=== PATIENT | male | born 1985 | race Caucasian/White ===

== ENCOUNTER 2024-12-27 08:33 | Inpatient (IN) | payer BC, MEDICAID ==
[~2024-12-27] VITALS: Ht 170.2 cm; Wt 72.1 kg
[2024-12-27 08:36] VITALS: O2SAT 99
[2024-12-27] MEDS: MORPHINE SULFATE 4 MG/ML INJ (FOR IV/IM USE) IM ONE (09:28)
[2024-12-27] MEDS ORDERED: THROMBIN (BOVINE) 5000 UNITS/VIAL TOP ONE (14:46)
[2024-12-27] MEDS ORDERED: GENTAMICIN SULF 40MG/ML 2ML VIAL ONE (14:47)
[2024-12-27] MEDS ORDERED: LIDOCAINE HCL/EPINEPHRINE 1%-EPI 1:100,000 20ML VIAL ONE (14:47)
[2024-12-27] MEDS: DEXAMETHASONE 10 MG/ML VIAL IV ONE (15:00)
[2024-12-27] MEDS: MORPHINE SULFATE 10 MG/ML INJ (NOT FOR IM USE) IV ONE (15:00)
[2024-12-27 15:18] LABS: BASOPHILS % 0.5 % (0.0-2.0); EOSINOPHILS % 0.5 % (0.0-5.0); HEMATOCRIT. 41.2 % (42.0-52.0); HEMOGLOBIN. 14.2 g/dL (14.0-18.0); LYMPHOCYTES % 13.2 % (20.0-50.0); MEAN PLATELET VOLUME 7.4 fl (7.4-10.4); MONOCYTES % 12.3 % (2.0-8.0); NEUTROPHILS % 73.5 % (40.0-76.0); PLATELET 323 x1000/uL (130-400); RED BLOOD CELL COUNT 4.73 mill/uL (4.7-6.1); RED CELL DISTRIBUTION WIDTH 13.1 % (11.6-14.6)
[2024-12-27 15:27] LABS: CREATININE 0.9 mg/dL (0.6-1.3)
[2024-12-27] MEDS ORDERED: ROCURONIUM BROMIDE 10MG/ML VIAL 5ML IV ONE (15:27)
[2024-12-27] MEDS ORDERED: FAMOTIDINE 20MG/2ML VIAL IV ONE (15:27)
[2024-12-27] MEDS ORDERED: ACETAMINOPHEN 1000MG/100ML 100 ML IV ONE (15:27)
[2024-12-27 15:28] LABS: UREA NITROGEN BLOOD 12 mg/dL (9-23)
[2024-12-27] MEDS ORDERED: LIDOCAINE HCL 1% 10 MG/ML 10ML VIAL ONE (15:30)
[2024-12-27] MEDS ORDERED: FENTANYL CITRATE/PF 50MCG/ML 2ML VIAL ONE (15:31)
[2024-12-27] MEDS ORDERED: PROPOFOL 200MG/20ML VIAL IV ONE ×2 (15:31→16:06)
[2024-12-27] MEDS ORDERED: MIDAZOLAM HCL 2 MG/2 ML VIAL ONE (15:31)
[2024-12-27 15:40] LABS: INR 0.9
[2024-12-27] MEDS ORDERED: HYDRALAZINE 20MG/ML VIAL IV PRN ×3 (15:45→16:30)
[2024-12-27] MEDS ORDERED: DEXTROSE 50% WATER 50ML SYRINGE IV PRN (16:00)
[2024-12-27] MEDS ORDERED: CLONIDINE 0.1MG TABLET PO PRN (16:00)
[2024-12-27] MEDS ORDERED: ACETAMINOPHEN 325MG TABLET PO PRN (16:00)
[2024-12-27] MEDS ORDERED: IPRATROPIUM/ALBUTEROL 0.5-3(2.5)MG/3ML NEB HHN PRN (16:00)
[2024-12-27] MEDS ORDERED: ONDANSETRON HCL 4MG/2ML INJ IV PRN ×2 (16:00→16:30)
[2024-12-27] MEDS ORDERED: HYDROMORPHONE HCL/PF 2MG/ML INJ ONE (16:01)
[2024-12-27] MEDS ORDERED: NALOXONE HCL 0.4MG/ML VIAL IV PRN (16:15)
[2024-12-27] MEDS ORDERED: DEXAMETHASONE 4MG/ML 1ML VIAL ONE (16:17)
[2024-12-27] MEDS ORDERED: SUCCINYLCHOLINE CHLORIDE 200MG/10ML IV ONE (16:17)
[2024-12-27] MEDS ORDERED: LABETALOL 5MG/ML 4ML INJ IV PRN (16:30)
[2024-12-27] MEDS: BLOOD SUGAR DIAGNOSTIC STRIP TEST SCH (17:00)
[2024-12-27] MEDS ORDERED: ONDANSETRON HCL 4MG/2ML INJ ONE (17:06)
[2024-12-27] MEDS ORDERED: GLYCOPYRROLATE 0.2 MG/ML 2ML VIAL ONE (17:31)
[2024-12-27] MEDS: DEXT 5%/LACTATED RINGERS 1,000 ML IV SCH (18:16)
[2024-12-27] MEDS: HYDROMORPHONE HCL/PF 1MG/ML INJ IV PRN (18:32)
[2024-12-27 19:10] VITALS: BP 113/82; PULSE 76; RESP 18; TEMP 36.3068
[2024-12-27] MEDS: DEXAMETHASONE 4MG/ML 1ML VIAL IV SCH (22:41)
[2024-12-27] MEDS: CEFAZOLIN 1000MG PREMIX 50 ML IV SCH (22:41)
[2024-12-27] MEDS: HYDROCODONE/ACETAMINOPHEN 7.5/325MG TABLET PO PRN (22:48)
[2024-12-28] MEDS: HYDROMORPHONE HCL/PF 2MG/ML INJ IV PRN (00:34)
[2024-12-28] MEDS: ACETAMINOPHEN 325MG TABLET PO PRN (02:54)
[2024-12-28 07:50] LABS: T4 FREE 2.47 ng/dL (0.89-1.76)
[2024-12-28 07:53] LABS: CREATININE 0.9 mg/dL (0.6-1.3)
[2024-12-28 07:54] LABS: LDL CHOLESTEROL 221 mg/dL (5-100); TRIGLYCERIDE 143 mg/dL (0-150); UREA NITROGEN BLOOD 8 mg/dL (9-23)
[2024-12-28 08:00] VITALS: BP 100/54; PULSE 103; RESP 17; TEMP 36.4; O2SAT 99
[2024-12-28 08:16] LABS: HEMATOCRIT. 39.3 % (42.0-52.0); HEMOGLOBIN. 13.7 g/dL (14.0-18.0); MEAN PLATELET VOLUME 8.2 fl (7.4-10.4); PLATELET 316 x1000/uL (130-400); RED BLOOD CELL COUNT 4.43 mill/uL (4.7-6.1); RED CELL DISTRIBUTION WIDTH 13.4 % (11.6-14.6)
[2024-12-28] MEDS: AMLODIPINE 10MG TABLET PO SCH (08:24)
[2024-12-28 10:27] VITALS: BP 112/77; TEMP 36.2
[2024-12-28 12:00] VITALS: BP 106/72; PULSE 70; RESP 18; TEMP 36.4; O2SAT 98
[2024-12-28] MEDS: HYDROCODONE/ACETAMINOPHEN 10/325MG TABLET PO PRN (13:47)
[2024-12-28] MEDS: CEFAZOLIN 1000MG PREMIX 50 ML IV SCH (15:46)
[2024-12-28 16:00] VITALS: BP 113/80; PULSE 68; RESP 19; TEMP 36.4; O2SAT 97
[2024-12-28] MEDS ORDERED: HYDROCODONE/ACETAMINOPHEN 10/325MG TABLET PO PRN (16:45)
[2024-12-28 18:12] LABS: LYMPHOCYTES % MANUAL 2.0 % (20.0-50.0); MONOCYTES % MANUAL 2.0 % (2.0-8.0); NEUTROPHILS % MANUAL 96.0 % (45.0-75.0); PLATELET ESTIMATE NORMAL
[2024-12-28 20:00] VITALS: BP 122/78; PULSE 87; RESP 18; TEMP 36.3; O2SAT 98
[2024-12-29] VITALS: BP 144/83; PULSE 98; RESP 17; TEMP 36.4; O2SAT 100
[2024-12-29 04:00] VITALS: BP 133/101; PULSE 92; RESP 18; TEMP 36.6; O2SAT 98
[2024-12-29 08:00] VITALS: BP 131/88; PULSE 67; RESP 18; TEMP 36.7; O2SAT 98
[2024-12-29] MEDS ORDERED: ATOR20TA65 PO ×2 (08:31→08:33)
[2024-12-29] MEDS ORDERED: AMLO10TA80 MT (08:37)
[2024-12-29] MEDS ORDERED: HYDR-4009 MT ×2 (08:38→08:40)
[2024-12-29] MEDS ORDERED: APIX2.5T PO (08:57)
[2024-12-29] MEDS ORDERED: BACL-141 MT (09:33)
[2024-12-29 11:31] VITALS: BP 131/88; PULSE 67; RESP 18; TEMP 98.1
== END 2024-12-29 12:29 | disposition home or self-care (01) | DRG 519 ==
LOC: ER 08:33 → EDBEDREQ 15:07 → EDBEDREQTM 15:07 → ENRESERV 16:59 → 7EST 19:13
PROVIDERS: ADMIT Student in an Organized Health Care Education/Training Program; ATTEND Student in an Organized Health Care Education/Training Program
PROC: 01NB0ZZ Release Lumbar Nerve, Open Approach (ICD-10-PCS; principal; 2024-12-27)
PROC: 0SB40ZZ Excision of Lumbosacral Disc, Open Approach (ICD-10-PCS; 2024-12-27)
PROC: 01NR0ZZ Release Sacral Nerve, Open Approach (ICD-10-PCS; 2024-12-27)
DX: M51.17 Intervertebral disc disorders with radiculopathy, lumbosacral region (principal); G82.20 Paraplegia, unspecified; I10 Essential (primary) hypertension; M48.07 Spinal stenosis, lumbosacral region; G89.29 Other chronic pain
CPT/HCPCS: 36415; 72100; 72148; 76000; 80048; 80061; 82550; 82962; 83036; 84439; 84443; 85025; 88304; 88311; 95925; 95926; 95928; 95929; 97116; 97162; 97166; 99285; J0330; J0690; J1100; J1171; J1308; J1580; J2003; J2004; J2250; J2270; J2405; J2704; J3010; J3490; J0131